=== PATIENT | male | born 1945 | race Two or more races ===

== ENCOUNTER 2018-11-23 10:33 | Emergency (ER) | payer OTHER ==
[~2018-11-23] VITALS: Ht 170.2 cm; Wt 82.1 kg
[2018-11-23 12:17] VITALS: BP 131/89
== END 2018-11-23 12:24 | disposition home or self-care (01) ==
LOC: ER 10:43
DX: R33.9 Retention of urine, unspecified (principal); E11.9 Type 2 diabetes mellitus without complications; I10 Essential (primary) hypertension
CPT/HCPCS: 51702; 81002

== ENCOUNTER 2020-02-04 06:49 | Emergency (ER) | payer OTHER ==
[~2020-02-04] VITALS: Ht 172.7 cm; Wt 83.9 kg
[2020-02-04] MEDS ORDERED: cloNIDine HCL 0.1 MG TAB PO ONE (08:30)
[2020-02-04 08:35] VITALS: BP 135/82
[2020-02-04 08:53] LABS: Urine Bacteria NONE SEEN /hpf (None Seen); Urine Blood 3+ /uL (Negative); Urine WBC 7 /hpf (0 - 3)
== END 2020-02-04 09:39 | disposition home or self-care (01) ==
LOC: ER 06:49
DX: R33.9 Retention of urine, unspecified (principal); I10 Essential (primary) hypertension; R30.0 Dysuria; E11.9 Type 2 diabetes mellitus without complications
CPT/HCPCS: 51702; 81001